=== PATIENT | female | born 2005 | race Two or more races ===

== ENCOUNTER 2025-05-17 23:34 | Inpatient (IN) | payer MEDICAID, OTHER ==
[~2025-05-17] VITALS: Ht 157.5 cm; Wt 51.3 kg
[2025-05-18 00:40] LABS: COVID AG,FIA SOURCE NASAL SWAB
[2025-05-18 00:47] LABS: PLATELET COUNT (AUTO) 251 K/uL (150-450); RED BLOOD CELL COUNT(AUTO) 4.51 MIL/uL (4.00-5.20); RED CELL DISTRIBUTION WIDTH 25.7 % (11.5-14.5); WHITE BLOOD COUNT (AUTO) 7.2 K/uL (4.5-11.0)
[2025-05-18 00:48] LABS: APPEARANCE,URINE CLEAR (CLEAR); GLUCOSE, URINE (UA) NEGATIVE (NEGATIVE); LEUKOCYTE ESTERASE ,URINE SMALL (NEGATIVE); NITRATE,URINE NEGATIVE (NEGATIVE); OCCULT BLOOD,URINE NEGATIVE (NEGATIVE); PH,URINE DRUG SCREEN 6.5 (5.0-8.0); SPECIFIC GRAVITIY, URINE 1.004 (1.003-1.030)
[2025-05-18 00:53] LABS: ALCOHOL, URINE DRUG SCREEN POSITIVE (NEGATIVE); AMPHET/METH SCREEN,URINE NEGATIVE (NEGATIVE); BARBITURATE SCREEN, URINE NEGATIVE (NEGATIVE); CANNABINOID SCREEN,URINE NEGATIVE (NEGATIVE); COCAINE SCREEN,URINE NEGATIVE (NEGATIVE); METHADONE SCREEN, URINE NEGATIVE (NEGATIVE)
[2025-05-18 00:54] LABS: ALCOHOL, BLOOD (SERUM) 96 mg/dL (0-10); ASPARTATE AMINOTRANSFERASE 23 U/L (15-37); TOTAL PROTEIN, SERUM 7.4 g/dL (6.4-8.2)
[2025-05-18 00:58] LABS: SARS-COV2 (COVID) ANTIGEN,FIA Negative (Negative)
[2025-05-18 00:59] LABS: CALCIUM, TOTAL 8.8 mg/dL (8.8-10.5); CREATININE 0.74 mg/dL (0.60-1.30); GLOMERULAR FILTR. RATE CALC > 60 mL/min (>60); GLUCOSE,RANDOM 83 mg/dL (70-110); SODIUM SERUM 137 mmol/L (136-145); UREA NITROGEN, BLOOD 9 mg/dL (7-18)
[2025-05-18 01:05] LABS: SQUAMOUS EPITHELIAL CELL,UR Rare /LPF (None Seen)
[2025-05-18 01:09] LABS: RBC MORPHOLOGY COMMENT ABNORMAL RBC MORPH
[2025-05-18] MEDS ORDERED: ZOLPIDEM TARTRATE 10 MG TABLET PO PRN (02:00)
[2025-05-18 13:24] VITALS: O2SAT 100
[2025-05-18 14:30] VITALS: BP 113/78; PULSE 94; RESP 16; TEMP 97.1; O2SAT 100
[2025-05-18 20:15] VITALS: BP 98/61; PULSE 64; RESP 17; TEMP 98.4; O2SAT 98
[2025-05-18] MEDS ORDERED: INFLUENZA VIRUS VACCINE TVS (6MO+) 2025-26/PF 45 MCG/0.5 ML SYRINGE IM. ONE (20:30)
[2025-05-19 08:19] VITALS: BP 103/67; PULSE 69; RESP 17; TEMP 98.4; O2SAT 99
[2025-05-19 08:56] LABS: PLATELET COUNT (AUTO) 267 K/uL (150-450); RED BLOOD CELL COUNT(AUTO) 4.58 MIL/uL (4.00-5.20); RED CELL DISTRIBUTION WIDTH 25.6 % (11.5-14.5); WHITE BLOOD COUNT (AUTO) 7.0 K/uL (4.5-11.0)
[2025-05-19] MEDS ORDERED: LOPERAMIDE HCL 2 MG CAPSULE PO PRN (09:00)
[2025-05-19] MEDS ORDERED: MAGNESIUM HYDROXIDE SUSPENSION 30 ML UDCUP PO PRN (09:00)
[2025-05-19] MEDS ORDERED: PETROLATUM,WHITE 28 GM JELLY TP PRN (09:00)
[2025-05-19] MEDS ORDERED: IBUPROFEN 600 MG TABLET PO PRN (09:00)
[2025-05-19] MEDS ORDERED: BACITRACIN 28 GM OINTMENT TP PRN (09:00)
[2025-05-19] MEDS ORDERED: MAG HYDROX/ALUMINUM HYD/SIMETH ES 30 ML SUSPENSION UDCUP PO PRN (09:00)
[2025-05-19] MEDS ORDERED: OMEPRAZOLE 20 MG CAPSULE PO PRN (09:00)
[2025-05-19] MEDS ORDERED: ONDANSETRON 4 MG TABLET PO PRN (09:00)
[2025-05-19] MEDS ORDERED: ALBUTEROL SULFATE HFA 90 MCG/PUFF 8 GM INHALER IH PRN (09:00)
[2025-05-19] MEDS ORDERED: BENZOCAINE/MENTHOL [CEPACOL] LOZENGE PO PRN (09:00)
[2025-05-19] MEDS ORDERED: ACETAMINOPHEN 325 MG TABLET PO PRN (09:00)
[2025-05-19] MEDS ORDERED: DOCUSATE SODIUM 100 MG CAPSULE PO PRN (09:00)
[2025-05-19] MEDS: NITROFURANTOIN MONOHYD/M-CRYST 100 MG CAPSULE [MACROBID] PO SCH (09:52)
[2025-05-19 10:15] LABS: ASPARTATE AMINOTRANSFERASE 22 U/L (15-37); CALCIUM, TOTAL 8.6 mg/dL (8.8-10.5); CHOL/HDL RATIO 2.1 (3.9-5.7); CREATININE 0.70 mg/dL (0.60-1.30); GLOMERULAR FILTR. RATE CALC > 60 mL/min (>60); GLUCOSE,RANDOM 74 mg/dL (70-110); LDL CHOL (CALC.) 78 mg/dL (0-130); SODIUM SERUM 136 mmol/L (136-145); TOTAL PROTEIN, SERUM 7.2 g/dL (6.4-8.2); UREA NITROGEN, BLOOD 16 mg/dL (7-18)
[2025-05-19 20:24] VITALS: BP 114/83; PULSE 100; RESP 18; TEMP 97.8; O2SAT 98
[2025-05-20 05:08] LABS: HEPATITIS C AB (EIA) Non Reactive (Non Reactive)
[2025-05-20 08:41] VITALS: BP 109/73; PULSE 91; RESP 17; TEMP 97.3; O2SAT 100
[2025-05-20 20:18] VITALS: BP 111/80; PULSE 82; RESP 17; TEMP 98.1; O2SAT 98
[2025-05-21 08:42] VITALS: BP 111/70; PULSE 83; RESP 17; TEMP 98.1; O2SAT 99
[2025-05-21] MEDS ORDERED: NITR-104 PO (12:39)
== END 2025-05-21 16:39 | disposition home or self-care (01) | DRG 751 ==
LOC: EMS 23:40 → B2S 05-18 13:35
PROVIDERS: ADMIT Psychiatry & Neurology Psychiatry; ATTEND Psychiatry & Neurology Psychiatry
PROC: GZHZZZZ Group Psychotherapy (ICD-10-PCS; principal; 2025-05-19)
PROC: GZ52ZZZ Individual Psychotherapy, Cognitive (ICD-10-PCS; 2025-05-20)
DX: F33.2 Major depressive disorder, recurrent severe without psychotic features (principal); F10.129 Alcohol abuse with intoxication, unspecified; N39.0 Urinary tract infection, site not specified; T42.4X2A Poisoning by benzodiazepines, intentional self-harm, initial encounter; F13.90 Sedative, hypnotic, or anxiolytic use, unspecified, uncomplicated; Z20.822 Contact with and (suspected) exposure to COVID-19; F41.9 Anxiety disorder, unspecified; Y90.4 Blood alcohol level of 80-99 mg/100 ml; G47.00 Insomnia, unspecified; Z85.038 Personal history of other malignant neoplasm of large intestine; Z91.51 Personal history of suicidal behavior; Z81.8 Family history of other mental and behavioral disorders; Y92.89 Other specified places as the place of occurrence of the external cause
CPT/HCPCS: 80048; 80053; 80061; 80076; 80307; 81001; 83036; 84436; 84443; 84703; 85025; 86803; 87077; 87086; 87186; 87340; 93005; 99285; G0480; G0481